=== PATIENT | female | born 1955 | race Caucasian/White ===

== ENCOUNTER 2022-06-13 16:14 | Outpatient (CLI) | payer MEDICARE, BC | END 2022-06-13 16:15 | disposition home or self-care (01) | LOC: NAV RAD 16:14 | PROVIDERS: ATTEND Nurse Practitioner Family | DX: M25.552 Pain in left hip (principal); M16.0 Bilateral primary osteoarthritis of hip; M47.818 Spondylosis without myelopathy or radiculopathy, sacral and sacrococcygeal region | CPT/HCPCS: 72170 ==